=== PATIENT | male | born 1940 | race Caucasian/White ===

== ENCOUNTER 2017-06-10 05:39 | Observation (INO) | payer OTHER ==
[~2017-06-10] VITALS: Ht 172.7 cm; Wt 87.3 kg
[2017-06-10] MEDS ORDERED: ceFAZolin 2 GM/DEX PREMIX 50 ML IV SCH (06:15)
[2017-06-10] MEDS ORDERED: ASPI-516 CHEW (06:28)
[2017-06-10] MEDS ORDERED: ENBR50IN2 SQ (06:28)
[2017-06-10] MEDS ORDERED: AMLO10TA2 PO (06:28)
[2017-06-10] MEDS ORDERED: LOSA100T PO (06:28)
[2017-06-10] MEDS ORDERED: GABA300C5 PO (06:28)
[2017-06-10] MEDS ORDERED: LEVO25TA4 PO (06:28)
[2017-06-10] MEDS ORDERED: PANT40TA3 PO (06:28)
[2017-06-10] MEDS ORDERED: CARV6.252 PO (06:28)
[2017-06-10] MEDS ORDERED: HYDR12.57 PO (06:28)
[2017-06-10] MEDS ORDERED: LEFL1TAB3 PO (06:28)
[2017-06-10] MEDS ORDERED: PRAV40TA2 PO (06:28)
[2017-06-10] MEDS ORDERED: CLOP75TA PO (06:28)
[2017-06-10] MEDS ORDERED: OXYC1TAB63 PO (06:28)
[2017-06-10] MEDS ORDERED: METOPROLOL TARTRATE 25 MG TAB PO PRN (06:30)
[2017-06-10] MEDS ORDERED: CHLORHEXIDINE GLUCONATE 2 % 1 PACK (2 CLOTHS) TOPICAL PRN (06:30)
[2017-06-10] MEDS ORDERED: POVIDONE IODINE 5% (ANTISEPSIS KIT) 4 APPLICATIONS EACH NARE PRN (06:30)
[2017-06-10] MEDS ORDERED: SODIUM CHLORID 0.9% 500 ML IV PRN (06:30)
[2017-06-10] MEDS ORDERED: LACTATED RINGER'S 1000 ML IV PRN (06:30)
[2017-06-10 06:40] LABS: AUTOMATED NEUTROPHIL # 2.9 TH/MM3 (1.8-7.7); BASOPHIL # 0.1 TH/MM3 (0-0.2); BASOPHIL % 1.3 % (0.0-2.0); EOSINOPHIL # 0.2 TH/MM3 (0-0.4); EOSINOPHIL % 4.5 % (0.0-4.0); HEMATOCRIT 42.7 % (39.0-51.0); HEMOGLOBIN 14.3 GM/DL (13.0-17.0); LYMPH % 25.9 % (9.0-44.0); LYMPHOCYTE # 1.4 TH/MM3 (1.0-4.8); MEAN CELL VOLUME 88.3 FL (80.0-100.0); MEAN CORPUSCULAR HEMOGLOBIN 29.5 PG (27.0-34.0); MEAN CORPUSCULAR HGB CONC 33.4 % (32.0-36.0); MEAN PLATELET VOLUME 9.1 FL (7.0-11.0); MONO % 13.7 % (0.0-8.0); MONOCYTE # 0.7 TH/MM3 (0-0.9); NEUT % 54.6 % (16.0-70.0); PLATELET COUNT 207 TH/MM3 (150-450); RED BLOOD COUNT 4.84 MIL/MM3 (4.50-5.90); RED CELL DISTRIBUTION WIDTH 14.1 % (11.6-17.2); WHITE BLOOD COUNT 5.3 TH/MM3 (4.0-11.0)
[2017-06-10 07:06] LABS: BICARBONATE 27.8 MEQ/L (21.0-32.0); CALCIUM 9.1 MG/DL (8.5-10.1); CREATININE 0.84 MG/DL (0.60-1.30)
[2017-06-10] MEDS ORDERED: BUPIVACAINE/EPINEPHRINE 0.5% PF 30 ML VIAL ONE (07:28)
--- NOTE | 2017-06-10 10:52 | HHI.PR ---
cc: Hari Roche MD Immediate Post Op Note Procedure Date: Jun 10, 2017 Pre Op Diagnosis: (1) COPD (chronic obstructive pulmonary disease) (2) CAD (coronary artery disease) (3) Hiatal hernia (4) Hiatal hernia with GERD Post Op Diagnosis: (1) COPD (chronic obstructive pulmonary disease) (2) Hiatal hernia (3) CAD (coronary artery disease) (4) Hiatal hernia with GERD (5) Status post laparoscopic Duarte fundoplication Surgeon: Hari Roche Chlorinator(s): Dr. Enciso Procedure: Laparoscopic reduction of large hiatal hernia Laparoscopic repair of hiatal hernia with mesh Laparoscopic Duarte fundoplication around a 54 [place] bougie Findings: Large hiatal hernia Complications: None Specimen(s) removed: Large hiatal hernia sac Estimated blood loss: 50 cc Anesthesia: General Drains: None IVF Patient to: PACU Patient Condition: Good Implant/Devices: SEE IMPLANT LOG (if applicable) Date/Time of Procedure: SEE SURGICAL CARE RECORD Hari Roche MD Jun 10, 2017 10:51
[2017-06-10] MEDS ORDERED: ACETAMINOPHEN/HYDROcodone 325 MG/5 MG TAB PO PRN (11:00)
[2017-06-10] MEDS ORDERED: ACETAMINOPHEN 325 MG TAB PO PRN (11:00)
[2017-06-10] MEDS ORDERED: oxyCODONE/ACETAMINOPHEN 5 MG/325 MG TAB PO PRN (11:00)
[2017-06-10] MEDS ORDERED: METOCLOPRAMIDE HCL 10 MG/2 ML VIAL IVS PRN (11:00)
[2017-06-10] MEDS ORDERED: Post-op Orders (for Pharmacy) XX ONE (11:00)
[2017-06-10] MEDS ORDERED: HYDROmorphone HCL PF 1 MG/ML VIAL IV PUSH PRN (11:00)
[2017-06-10] MEDS ORDERED: KETOROLAC TROMETHAMINE 30 MG/ML (IVP) VIAL IVP PRN (11:00)
[2017-06-10] MEDS ORDERED: MORPHINE SULFATE 8 MG/ML INJ ONE (11:05)
[2017-06-10] MEDS ORDERED: NORC5TAB PO (11:15)
[2017-06-10] MEDS: ACETAMINOPHEN 1000 MG/100 ML 100 ML IV SCH ×2 (11:32→18:10)
[2017-06-10] MEDS ORDERED: PROPOFOL 200 MG/20 ML AMP IV ONE (12:00)
[2017-06-10] MEDS ORDERED: DEXAMETHASONE SOD PHOS 4 MG/ML VIAL IV ONE (12:00)
[2017-06-10] MEDS ORDERED: GLYCOPYRROLATE 1 MG/5 ML SYRINGE IV PUSH ONE (12:00)
[2017-06-10] MEDS ORDERED: NEOSTIGMINE 5 MG/5 ML SYRINGE IV PUSH ONE (12:00)
[2017-06-10] MEDS ORDERED: PHENYLEPH/NS 1000 MCG/10 ML SYR IV ONE (12:00)
[2017-06-10] MEDS ORDERED: ROCURONIUM INJ 50 MG/5 ML SYRINGE IV PUSH ONE (12:00)
[2017-06-10] MEDS ORDERED: ePHEDrine/NS 25 MG/5 ML SYRINGE IV ONE (12:00)
[2017-06-10] MEDS ORDERED: ONDANSETRON HCL 4 MG/2 ML VIAL IV ONE (12:00)
[2017-06-10] MEDS ORDERED: *morphine SULFATE 4 MG/ML PERIprocedure ONLY ONE (12:09)
[2017-06-10] MEDS ORDERED: MIDAZOLAM HCL 2 MG/2 ML VIAL ONE (12:44)
[2017-06-10] MEDS ORDERED: DO NOT ADM ANY ANTICOAGULANT DRUGS PRN (13:00)
--- NOTE | 2017-06-10 13:38 | EKG ---
Date Performed: 06/10/2017 Time Performed: 07:15:23 PTAGE: 76 years EKG: Sinus rhythm NORMAL ECG NO PREVIOUS TRACING DOCTOR: Ozzie Lundberg Interpretating Date/Time 06/10/2017 13:36:17
[2017-06-10] MEDS ORDERED: BENZONATATE 100 MG CAP PO PRN (14:30)
--- NOTE | 2017-06-10 15:48 | MP ---
cc: Hari Roche MD DATE OF OPERATION: 06/10/2017 DATE OF PROCEDURE: 06/10/2017. PREOPERATIVE DIAGNOSIS: Gastroesophageal reflux with a large hiatal hernia. Pulmonary disease Cardiac disease POSTOPERATIVE DIAGNOSIS: Gastroesophageal reflux with a large hiatal hernia. PROCEDURE: 1. Laparoscopic reduction of large hiatal hernia. 2. Laparoscopic repair of hiatal hernia with mesh. 3. Laparoscopic Duarte fundoplication. ANESTHESIA: General. SURGEON: Hari Roche MD PSYCHOLOGIST CHIEF: Dr. Ozzie Enciso INDICATIONS: This is a pleasant elderly gentleman who has severe reflux and a large hiatal hernia and he is a need of the above-mentioned surgery. PROCEDURE: The patient is taken to the operating room, placed in supine position. After anesthesia, his abdomen is prepped and draped with Betadine solution. A timeout is done. He is given preoperative antibiotics. First we make our incision just above the umbilicus. We are able to enter the abdomen directly and placed a 10/[address]. We insufflate the abdomen to 15 mmHg. Four other ports are placed, 2 on the left side and 2 in the right side in the upper quadrants. The one on the right is used for the liver retractor. The mid-right and left ports were used for manipulation and the lateral left port is used for the medical office assistant. We get into the lesser curve. This is able to identify the large hiatal hernia. It is noted that about 3/4 of the stomach was up in the chest and this was completely reduced. We then are able to dissect up along the edge of the hernia sac, all the way up into the chest to posterior to the esophagus and this large hernia sac is completely removed with a combination of blunt dissection and mostly with the electrocautery device. Once the hernia sac was completely reduced and removed, we then able are able to get our posterior window behind the esophagus. This further identifies the GE junction and allows us to visualize the left side of the diaphragm. We cleaned off the left paolo as well. We dissected the esophagus off the surrounding flimsy tissue more superiorly to allow mobilization of the esophagus down into the abdominal cavity. After this is done, we take down the short gastrics to allow mobilization of the fundus for the fundoplication. We then place 3 sutures in an esophageal hiatus to reapproximate this large defect. This is done with the suture medical office assistant and Ethibond sutures. We get nice reapproximation of the tissues, although somewhat attenuated because of his age and body habitus. Once this was complete, we were able to visualize the fundus and we were able to bring this posteriorly around the esophagus. Once this was done, we were able to do the fundoplication by placing 3 sutures, 1 from the left side of the stomach to the wrap portion of the fundus with an interspersed stitch in the esophagus. Three of these sutures were placed. It should be noted that we did slightly dilate up the esophagus with a sequential bougies starting at 38, all the way to a 54. The wrap was performed around a 54 using the technique described above. After the wrap was done, we then removed the bougie. We then placed the U-shaped piece of Bio-A and placed and secured it to the esophageal hiatus and brought it around to the left side of the esophagus and secured the superior edge of the C-shaped mesh to the left paolo. This was done with Ethibond sutures. We then placed some Tisseel to glue the mesh to the diaphragm, most posteriorly on the mesh. Once this was completed, photos had been taken. There was excellent hemostasis. We placed the hernia sac that was quite large into an EndoCatch and pulled it out through the umbilical incision. After that was done, the trocars were removed. The fascial layer at the umbilicus was closed with 0 Vicryl and skin at all 5 sites were closed with a 4-0 Vicryl, Steri-Strips applied, sterile bandage applied. The patient tolerated the procedure well, had no immediate postop complications. MD BRIAN Lazaro/KLAUDIA , 02:25 PM , 03:46 PM JASON
[2017-06-10 16:00] VITALS: BP 157/93; PULSE 69; RESP 19; TEMP 97.1; O2SAT 92
[2017-06-10 20:00] VITALS: BP 117/64; PULSE 64; PULSE 72; RESP 17; TEMP 97.6; O2SAT 97
[2017-06-10] MEDS: CARVEDILOL 6.25 MG TAB PO SCH (20:53)
[2017-06-10] MEDS: PRAVASTATIN SOD 40 MG TAB PO SCH (20:53)
[2017-06-10] MEDS: ACETAMINOPHEN/HYDROcodone 325 MG/5 MG TAB PO PRN (20:55)
[2017-06-10] MEDS ORDERED: TEMAZEPAM 15 MG CAP PO SCH (21:00)
[2017-06-10] MEDS ORDERED: GABAPENTIN 300 MG CAP PO SCH (21:00)
[2017-06-10] MEDS ORDERED: TEMAZEPAM 15 MG CAP PO PRN (22:00)
[2017-06-11] VITALS: BP 131/79; PULSE 72; RESP 17; TEMP 97.8; O2SAT 94
[2017-06-11] MEDS: ACETAMINOPHEN/HYDROcodone 325 MG/5 MG TAB PO PRN (03:40)
[2017-06-11 04:00] VITALS: BP 144/93; PULSE 63; PULSE 70; RESP 17; TEMP 97.3; O2SAT 92
[2017-06-11] MEDS: ACETAMINOPHEN 1000 MG/100 ML 100 ML IV SCH ×2 (05:01)
[2017-06-11] MEDS ORDERED: LEVOTHYROXINE SODIUM 25 MCG TAB PO SCH (06:00)
[2017-06-11 08:00] VITALS: BP 161/91; PULSE 69; RESP 19; TEMP 97.9; O2SAT 94
[2017-06-11] MEDS: PRAVASTATIN SOD 40 MG TAB PO SCH (08:03)
[2017-06-11] MEDS: CARVEDILOL 6.25 MG TAB PO SCH (08:03)
[2017-06-11] MEDS ORDERED: PANTOPRAZOLE SOD 40 MG DELAYED RELEASE TAB PO SCH (09:00)
[2017-06-11] MEDS ORDERED: HYDROCHLOROTHIAZIDE 12.5 MG CAP PO SCH (09:00)
[2017-06-11] MEDS ORDERED: LOSARTAN 50 MG TAB PO SCH (09:00)
--- NOTE | 2017-06-11 09:52 | HHI.PR ---
Subjective Subjective Notes no acute issues, tolerating diet, +flatus no bm Objective Vitals/I&O Vital Signs Date Time Temp Pulse Resp B/P (MAP) Pulse Ox O2 Delivery O2 Flow Rate FiO2 06/11/17 08:00 97.9 69 19 161/91 (114) 94 06/10/17 12:05 Nasal Cannula 2 Lungs: Clear Abdomen: Other (incisions c/d/i soft ) A/P Assessment and Plan s/p tyler fundoplication POD 1 hh Repair PLAN liquid diet oob pain control po dvt ppx d/c home today Gadiel Head MD Jun 11, 2017 09:52
== END 2017-06-11 11:16 | disposition home or self-care (01) ==
LOC: HSDC 05:39 → N07A 13:07
PROVIDERS: ADMIT Surgery; ATTEND Surgery
DX: K21.9 Gastro-esophageal reflux disease without esophagitis (principal); K44.9 Diaphragmatic hernia without obstruction or gangrene; I25.10 Atherosclerotic heart disease of native coronary artery without angina pectoris; J44.9 Chronic obstructive pulmonary disease, unspecified
CPT/HCPCS: 00790; 43281; 43282; 80048; 85025; 93005; 94150; C1781; G0378; J0131; J0690; J1100; J1885; J2250; J2270; J2370; J2405; J2710; J3010; J7120